=== PATIENT | female | born 1990 | race Hispanic/Latino ===

== ENCOUNTER 2017-09-24 14:04 | Observation (INO) | payer MEDICAID ==
[~2017-09-24] VITALS: Ht 154.9 cm; Wt 88.0 kg
[2017-09-24 14:49] LABS: APPEARANCE,URINE Cloudy (CLEAR); BILIRUBIN,URINE Negative (NEGATIVE); COLOR,URINE Yellow (YELLOW); GLUCOSE, URINE (UA) Negative (NEGATIVE); KETONES,URINE Negative (NEGATIVE); LEUKOCYTE ESTERASE ,URINE Moderate (NEGATIVE); NITRATE,URINE Positive (NEGATIVE); OCCULT BLOOD,URINE Negative (NEGATIVE); PROTEIN,URINE Negative (NEGATIVE)
[2017-09-24 14:56] LABS: BACTERIA,URINE Moderate /HPF (None Seen); RBC,URINE None Seen /HPF (0-1)
[2017-09-24] MEDS ORDERED: CEFTRIAXONE SODIUM 1 GM ONE (16:57)
[2017-09-24] MEDS ORDERED: ACETAMINOPHEN EXTRA STRENGTH 500 MG TABLET ONE (16:58)
[2017-09-24] MEDS ORDERED: LACTATED RINGERS 1000ML IV SCH (17:00)
[2017-09-24] MEDS ORDERED: ACETAMINOPHEN EXTRA STRENGTH 500 MG TABLET PO SCH (17:00)
[2017-09-24] MEDS ORDERED: CEFTRIAXONE 1GM/D5W 50ML 50 ML IV SCH (17:00)
== END 2017-09-24 18:50 | disposition home or self-care (01) ==
LOC: EDH 14:04 → LDH 14:05
PROVIDERS: ADMIT Obstetrics & Gynecology; ATTEND Obstetrics & Gynecology
DX: O26.892 Other specified pregnancy related conditions, second trimester (principal); R10.9 Unspecified abdominal pain; O99.89 Other specified diseases and conditions complicating pregnancy, childbirth and the puerperium; M54.9 Dorsalgia, unspecified; Z3A.27 27 weeks gestation of pregnancy
CPT/HCPCS: 76805; 81001; 87088; 87186; 99285; G0378 ×5; J0696 ×2; 96360

== ENCOUNTER 2021-09-12 15:00 | Emergency (ER) | payer MEDICAID, OTHER ==
[~2021-09-12] VITALS: Ht 162.6 cm; Wt 87.1 kg
[~2021-09-12 15:00] MED LIST: GLYB5TAB8 PO; [UNRECOGNIZED DRUG - CODE] PO
[2021-09-12 15:05] VITALS: BP 119/74
[2021-09-12] MEDS ORDERED: DIPH25 PO (16:53)
[2021-09-12] MEDS ORDERED: PRED20TA3 PO (16:53)
[2021-09-12] MEDS ORDERED: DIPHENHYDRAMINE HCL 25 MG CAPSULE PO ONE (17:00)
[2021-09-12] MEDS ORDERED: FAMOTIDINE 20MG TAB PO ONE (17:00)
[2021-09-12] MEDS ORDERED: PREDNISONE 20 MG TABLET PO ONE (17:00)
== END 2021-09-12 17:04 | disposition home or self-care (01) ==
LOC: EDH 15:00
DX: T78.49XA Other allergy, initial encounter (principal); Z79.52 Long term (current) use of systemic steroids; X58.XXXA Exposure to other specified factors, initial encounter
CPT/HCPCS: 99284; Q0163

== ENCOUNTER 2022-01-01 07:59 | Emergency (ER) | payer OTHER ==
[~2022-01-01] VITALS: Ht 157.5 cm; Wt 89.8 kg
[~2022-01-01 07:59] MED LIST changes: +DIPH25 PO; +PRED20TA3 PO
[2022-01-01] MEDS ORDERED: IPRATROPIUM/ALBUTEROL SULFATE 3 ML SOLUTION IH STA (08:29)
[2022-01-01] MEDS ORDERED: PREDNISOLONE 15 MG/5 ML SOLN PO STA (08:29)
[2022-01-01] MEDS ORDERED: AMOX500C2 PO (11:00)
[2022-01-01] MEDS ORDERED: LORA10TA7 PO (11:00)
[2022-01-01 11:15] VITALS: BP 121/81
== END 2022-01-01 11:17 | disposition home or self-care (01) ==
LOC: EDH 07:59
DX: J32.9 Chronic sinusitis, unspecified (principal); Z20.822 Contact with and (suspected) exposure to COVID-19; Z79.52 Long term (current) use of systemic steroids
CPT/HCPCS: 99284; 71045; 87635; 87804 ×2; 81025; 94640; C9803

== ENCOUNTER 2023-06-22 10:50 | Emergency (ER) | payer BC ==
[~2023-06-22] VITALS: Ht 160 cm; Wt 93.9 kg
[~2023-06-22 10:50] MED LIST changes: +AMOX500C2 PO; +DIPH-1242 PO; -DIPH25 PO; +LORA10TA7 PO
[2023-06-22 11:35] LABS: SARS-CoV-2, RNA, NAAT NEGATIVE SARS CoV-2 (NEGATIVE)
[2023-06-22 11:40] LABS: INFLUENZA TYPE A Negative For Type A (NEGATIVE); INFLUENZA TYPE B Negative For Type B (NEGATIVE)
[2023-06-22] MEDS ORDERED: BENZ-39 PO (12:02)
[2023-06-22 12:20] VITALS: BP 122/69; PULSE 78; RESP 18; O2SAT 97
== END 2023-06-22 12:29 | disposition home or self-care (01) ==
LOC: EDH 10:50
DX: J06.9 Acute upper respiratory infection, unspecified (principal); Z20.822 Contact with and (suspected) exposure to COVID-19
CPT/HCPCS: 87635; 87804